=== PATIENT | female | born 1940 | race Two or more races ===

== ENCOUNTER 2022-03-22 23:47 | Inpatient (IN) | payer MEDICARE, OTHER ==
[~2022-03-22] VITALS: Ht 162.6 cm; Wt 68.0 kg
[2022-03-23] VITALS (7 sets, daily range): BP systolic 110–206; BP diastolic 56–87
--- NOTE | 2022-03-23 01:00 | NUR ---
PLANT BREEDERFUR WEIGHER NOTES PT WAS BROUGHT IN BY 2 MALE computer art instructor VIA GURNEY FROM [facility] UNDER THE CARE OF DR. DEL TORO WITH DX OF NSTEMI. PT IS A/O X3, VERY ANXIOUS. ROMANSH SPEAKING. BREATHING EVEN AND NON-LABORED. TOLERATING ROOM AIR WELL. NOT IN APPARENT DISTRESS. NO C/O PAIN OR DISCOMFORT AT THIS TIME. V/S TAKEN FOLLOW: BP 206/87, HR 87, RESP 18, TEMP 98 DEGREES, SPO2 94%. ALLERGIES DOCUMENTED. HAS LEFT UPPER ARM MIDLINE AND RIGHT HAND IV ACCESS #22G, BOTH SALINE LOCKED. NO S/S OF INFILTRATION NOTED. SKIN AND HEAD-TO-TOE ASSESSMENT DONE. ALL BELONGINGS ACCOUNTED FOR. PT VERBALIZED TO ASK HER DAUGHTER FOR MORE ADMISSION INFO. SAFETY PRECAUTIONS IN PLACED: BED LOCKED AND IN LOWEST POSITION, SIDE RAILS UP X2, CALL LIGHT WITHIN REACH.
--- NOTE | 2022-03-23 01:15 | NUR ---
HEDIS ABSTRACTOR NOTES BP 206/87. NOTIFIED MD AND ORDERED HYDRALAZINE 10 MG IV PRN Q4H.
[2022-03-23] MEDS ORDERED: ACETAMINOPHEN 325 MG TABLET PO PRN (02:30)
[2022-03-23] MEDS ORDERED: ENOXAPARIN SODIUM 40 MG/0.4 ML DISP.SYRIN SQ SCH (02:30)
[2022-03-23] MEDS ORDERED: ONDANSETRON HCL/PF 4 MG/2 ML VIAL IVP PRN (02:30)
[2022-03-23] MEDS: hydrALAZINE HCL IV 20 MG VIAL IV PRN (02:38)
--- NOTE | 2022-03-23 02:54 | NUR ---
PROFESSIONAL WRESTLER NOTES RECEIVED CALL FROM LAB, CRITICAL VALUE TROPONIN 317. NOTIFIED. Addendum: 03/23/22 at 0623 by November MUNDO LIMA KHURRAM CRUZ
[2022-03-23] MEDS ORDERED: ENOXAPARIN SODIUM 40 MG/0.4 ML DISP.SYRIN SQ ONE (03:00)
--- NOTE | 2022-03-23 06:23 | NUR ---
MOLECULAR BIOLOGY SCIENTIST CLOSING NOTES PT LYING IN BED AWAKE. A/O X3, BULGARIAN SPEAKING. NO SOB OR NOTED, TOLERATING ROOM AIR WELL. DENIES PAIN AT THIS TIME. AFEBRILE. SKIN IS INTACT. ON TELE MONITOR READING SINUS RHYTHM WITH PAC AT 84 BPM. HAS LEFT UPPER ARM MIDLINE AND RIGHT HAND IV ACCESS #22G, BOTH SALINE LOCKED. INTACT, PATENT AND FLUSHING. ALL DUE MEDS GIVEN AND NEEDS ATTENDED. CALLED DAUGHTER AND NOTIFIED HER MOTHER IS ADMITTED IN [facility]. SAFETY PRECAUTIONS MAINTAINED: BED LOCKED AND IN LOWEST POSITION, SIDE RAILS UP X2, CALL LIGHT WITHIN REACH. WILL ENDORSE FOR RICHIE.
--- NOTE | 2022-03-23 07:30 | NUR ---
RN OPENING NOTES RECEIVED PATIENT ON BED AWAKE , VERBALLY RESPONSIVE , ESTONIAN SPEAKING , ON TELE WITH COLD PATCHER SR WITH PAC @84 HR , NO SOB OR DISTRESS NOTED , NO C/O PAIN AND DISCOMFORT , EARL MIDLINE AND RIGHT HAND #22G SL , SIDE RAILS UP X 2 , SAFETY PRECAUTIONS PROVIDED AND WILL CONTINUE TO MONITOR
[2022-03-23] MEDS ORDERED: OXCA300T15 PO (08:25)
[2022-03-23] MEDS ORDERED: AMLO-213 PO (08:25)
[2022-03-23] MEDS ORDERED: CLON0.1T PO (08:25)
[2022-03-23] MEDS ORDERED: METO-358 PO (08:25)
[2022-03-23] MEDS ORDERED: GABA-536 PO (08:25)
[2022-03-23] MEDS ORDERED: HYDR100T27 PO (08:25)
[2022-03-23] MEDS ORDERED: METH5TAB6 PO (08:25)
[2022-03-23] MEDS ORDERED: ATOR20TA PO (08:25)
[2022-03-23 09:08] LABS: BASOPHILS # (AUTO) 0.1 K/uL (0.0-0.2); BASOPHILS % (AUTO) 0.8 % (0.0-2.0); EOSINOPHILS % (AUTO) 0.3 % (0.0-6.0); HEMATOCRIT 41 % (33-45); HEMOGLOBIN 13.3 g/dL (11.5-14.8); LYMPHOCYTES # (AUTO) 2.4 K/uL (0.8-4.8); LYMPHOCYTES % (AUTO) 21.3 % (20.0-44.0); MEAN CORPUSCULAR HGB CONC 32 g/dl (31.0-36.0); MEAN CORPUSCULAR VOLUME 88 fL (82-100); MONOCYTES # (AUTO) 0.7 K/uL (0.1-1.30); MONOCYTES % (AUTO) 6.1 % (2.0-12.0); NEUTROPHILS # (AUTO) 8.1 K/uL (1.8-8.9); NEUTROPHILS % (AUTO) 71.5 % (43.0-81.0); PLATELET COUNT (AUTO) 238 K/uL (150-450); RED BLOOD CELL COUNT(AUTO) 4.68 MIL/uL (4.0-5.2); WHITE BLOOD COUNT (AUTO) 11.3 K/uL (4.3-11.0)
[2022-03-23 09:32] LABS: CALCIUM, SERUM 9.3 mg/dL (8.5-10.1); CREATININE 0.7 mg/dL (0.6-1.3); POTASSIUM 3.7 mmol/L (3.5-5.1)
[2022-03-23 09:56] LABS: THYROID STIMULATING HORMONE 2.624 uIU/mL (0.358-3.74)
[2022-03-23] MEDS: ASPIRIN 81 MG TAB.CHEW PO SCH (10:12)
[2022-03-23] MEDS: GABAPENTIN 400 MG CAPSULE PO SCH ×3 (10:12→17:00)
[2022-03-23] MEDS: AMLODIPINE BESYLATE 10 MG TABLET PO SCH (10:13)
[2022-03-23] MEDS: METHIMAZOLE (5MG) 5 MG TABLET PO SCH (10:13)
[2022-03-23] MEDS: ENOXAPARIN SODIUM 60 MG/0.6 ML DISP.SYRIN SQ SCH ×2 (10:26→21:14)
[2022-03-23] MEDS: CEFTRIAXONE 1 G in IV D5W 50 ML IV SCH (13:19)
[2022-03-23] MEDS: hydrALAZINE HCL 50 MG TABLET PO SCH ×2 (13:25→17:00)
[2022-03-23] MEDS: OXCARBAZEPINE 150 MG TABLET PO SCH (17:01)
--- NOTE | 2022-03-23 18:43 | NUR ---
MH TEACHER CLOSING NOTES PATIENT ON BED AWAKE A/O X 3 , VERBALLY RESPONSIVE , HUNGARIAN SPEAKING , ON TELE WITH CHIEF ORTHOPTIST SR @ 95 HR , NO SOB OR DISTRESS NOTED , NO C/O PAIN AND DISCOMFORT , ALL DUE MEDS GIVEN ORDERED , C/O TO BE NAUSEATED AND ZOFRAN 4MG GIVEN AT AROUND 1803 AND WITH HELP , EARL MIDLINE AND RIGHT HAND #22G SL AND IV ATB OF ROCEPHIN GIVEN ORDERED , SIDE RAILS UP X 2 , SAFETY PRECAUTIONS PROVIDED AND WILL ENDORSED TO NEXT SHIFT .
--- NOTE | 2022-03-23 19:40 | NUR ---
RN OPENING NOTES RECEIVED PT IN BED, ASLEEP, AWAKENS TO VERBAL STIMULI. AOx3, ABLE TO MAKE NEEDS KNOWN. ON RA AND TOLERATING WELL. NO SOB NOTED. NO S/SX OF RESPIRATORY DISTRESS NOTED. TELE MONITOR DETECTS SINUS RHYTHM. IV ACCESS IN KENNEDI MIDLINE AND R HAND #22G. IV IS INTACT, PATENT, AND FLUSHING WELL. SAFETY PRECAUTIONS IN PLACE: BED IN LOWEST, LOCKED POSITION, SIDERAILS UPx2, AND BRAKES ON. TABLE AND CALL LIGHT WITHIN REACH. ALL NEEDS MET AT THIS TIME.
[2022-03-23] MEDS: ATORVASTATIN 10 MG TABLET PO SCH (21:11)
[2022-03-24] VITALS: BP 128/60
[2022-03-24 04:00] VITALS: BP 145/58
--- NOTE | 2022-03-24 06:44 | NUR ---
RN CLOSING NOTES PT SITTING IN BED, AWAKE. AOx3, ABLE TO MAKE NEEDS KNOWN. ON RA AND TOLERATING WELL. NO SOB NOTED. NO S/SX OF RESPIRATORY DISTRESS NOTED. TELE MONITOR DETECTS SINUS RHYTHM. IV ACCESS IN EARL MIDLINE #18G. IV IS INTACT, PATENT, AND FLUSHING WELL. ALL ORDERS CARRIED OUT. ALL NEEDS MET. PT KEPT CLEAN AND DRY. SAFETY PRECAUTIONS IN PLACE: BED IN LOWEST, LOCKED POSITION, SIDERAILS UPx2, AND BRAKES ON. TABLE AND CALL LIGHT WITHIN REACH. WILL ENDORSE TO ONCOMING SHIFT FOR RICHIE.
[2022-03-24 07:34] LABS: BASOPHILS % (AUTO) 0.3 % (0.0-2.0); EOSINOPHILS % (AUTO) 0.3 % (0.0-6.0); HEMATOCRIT 39 % (33-45); HEMOGLOBIN 12.6 g/dL (11.5-14.8); LYMPHOCYTES # (AUTO) 2.3 K/uL (0.8-4.8); LYMPHOCYTES % (AUTO) 30.8 % (20.0-44.0); MEAN CORPUSCULAR HGB CONC 32 g/dl (31.0-36.0); MEAN CORPUSCULAR VOLUME 89 fL (82-100); MONOCYTES # (AUTO) 0.6 K/uL (0.1-1.30); MONOCYTES % (AUTO) 7.8 % (2.0-12.0); NEUTROPHILS # (AUTO) 4.6 K/uL (1.8-8.9); NEUTROPHILS % (AUTO) 60.8 % (43.0-81.0); PLATELET COUNT (AUTO) 222 K/uL (150-450); RED BLOOD CELL COUNT(AUTO) 4.41 MIL/uL (4.0-5.2); WHITE BLOOD COUNT (AUTO) 7.6 K/uL (4.3-11.0)
--- NOTE | 2022-03-24 07:40 | NUR ---
PHY THERAPIST OPENING PATIENT IS ALERT AND ORIENTED X3.PATIENT IS SLOVENIAN SPEAKING. PATIENT IS ON TELE MONITOR CURRENTLY SINUS RHYTHM. NO SIGNS OF PAIN OR DISCOMFORT NOTED AT THIS TIME. PATIENT HAS LEFT UPPER ARM MIDLINE. IV INTACT AND PATENT. PATIENT IS ON ROOM AIR. ALL SAFETY MEASURES IN PLACE. CALL LIGHT WITHIN REACH. BED LOCKED AT LOWEST POSITION. BED ALARM ON. SIDE RAILS UP X2.
[2022-03-24 07:51] LABS: ALBUMIN 3.3 g/dL (3.4-5.0); BILIRUBIN,TOTAL 0.5 mg/dL (0.2-1.0); CALCIUM, SERUM 9.3 mg/dL (8.5-10.1); CREATININE 0.8 mg/dL (0.6-1.3); MAGNESIUM 2.4 mg/dL (1.8-2.4); PHOSPHORUS 3.9 mg/dL (2.5-4.9); POTASSIUM 3.7 mmol/L (3.5-5.1)
[2022-03-24 08:00] VITALS: BP 183/74
--- NOTE | 2022-03-24 08:34 | NUR ---
notified dr. leblanc that troponin is 397
[2022-03-24] MEDS ORDERED: METOPROLOL SUCCINATE 50 MG TAB.SR.24H PO SCH (09:00)
[2022-03-24] MEDS: ASPIRIN 81 MG TAB.CHEW PO SCH (09:56)
[2022-03-24] MEDS: GABAPENTIN 400 MG CAPSULE PO SCH ×3 (09:57→16:42)
[2022-03-24] MEDS: AMLODIPINE BESYLATE 10 MG TABLET PO SCH (09:57)
[2022-03-24] MEDS: METHIMAZOLE (5MG) 5 MG TABLET PO SCH (09:57)
[2022-03-24] MEDS: OXCARBAZEPINE 150 MG TABLET PO SCH ×2 (09:58→16:42)
[2022-03-24] MEDS: hydrALAZINE HCL 50 MG TABLET PO SCH ×3 (09:58→17:00)
[2022-03-24] MEDS: ENOXAPARIN SODIUM 60 MG/0.6 ML DISP.SYRIN SQ SCH ×2 (10:00→21:31)
[2022-03-24] MEDS: METOPROLOL TARTRATE 50 MG TABLET PO SCH ×2 (11:12→18:01)
[2022-03-24] MEDS: CEFTRIAXONE 1 G in IV D5W 50 ML IV SCH (11:55)
[2022-03-24 12:00] VITALS: BP 139/59
[2022-03-24 16:00] VITALS: BP 116/54
--- NOTE | 2022-03-24 17:30 | NUR ---
telehealth nurse note provided education on hydralazine and benefits of it and risks due to low bp.patient refused.
--- NOTE | 2022-03-24 18:48 | NUR ---
NAVAL GUNFIRE SPOTTER CLOSING NOTE PATIENT IS ALERT AND ORIENTED X3.PATIENT IS POLISH SPEAKING ONLY UNDERSTANDS A LITTLE BIT OF HONDURAN. PATIENT IS ON TELE MONITOR CURRENTLY SINUS RHYTHM. NO SIGNS OF PAIN OR DISCOMFORT NOTED AT THIS TIME. PATIENT HAS LEFT UPPER ARM MIDLINE. IV INTACT AND PATENT. PATIENT IS ON ROOM AIR. KEPT CLEAN AND DRY. ALL NEEDS MET. ALL SAFETY MEASURES IN PLACE. CALL LIGHT WITHIN REACH. BED LOCKED AT LOWEST POSITION. BED ALARM ON. SIDE RAILS UP X2.
--- NOTE | 2022-03-24 19:30 | NUR ---
noc rn opening note received patient in bed, a/ox3, yakut speaking. no s/s of apparent distress on room air and denies any pain. tele monitor reading sr with 82 bpm. r. ua midline in place in saline lock flushing well. re-oriented and encouraged with the use of call light. safety in place. will continue with patient's plan of care.
[2022-03-24 20:12] VITALS: BP 101/52
[2022-03-24] MEDS: ATORVASTATIN 10 MG TABLET PO SCH (21:31)
[2022-03-25] MEDS: METOPROLOL TARTRATE 50 MG TABLET PO SCH ×4 (00:03→18:36)
[2022-03-25 00:09] VITALS: BP 117/47
[2022-03-25 04:00] VITALS: BP 155/49
--- NOTE | 2022-03-25 06:43 | NUR ---
noc rn closing patient in bed with eyes closed. easy to arouse. a/ox3-4. tele monitor reading sb this am with 53bpm this am. no s/s of apparent distress on room air. denies pain at this time. all needs attended. all scheduled medications administered. safety in place. will endorse to morning shift rn for continuity of patient care.
[2022-03-25 07:12] LABS: BASOPHILS % (AUTO) 0.5 % (0.0-2.0); EOSINOPHILS % (AUTO) 0.8 % (0.0-6.0); HEMATOCRIT 37 % (33-45); HEMOGLOBIN 12.2 g/dL (11.5-14.8); LYMPHOCYTES # (AUTO) 2.3 K/uL (0.8-4.8); LYMPHOCYTES % (AUTO) 28.3 % (20.0-44.0); MEAN CORPUSCULAR HGB CONC 33 g/dl (31.0-36.0); MEAN CORPUSCULAR VOLUME 88 fL (82-100); MONOCYTES # (AUTO) 0.6 K/uL (0.1-1.30); NEUTROPHILS # (AUTO) 5.1 K/uL (1.8-8.9); NEUTROPHILS % (AUTO) 63.4 % (43.0-81.0); PLATELET COUNT (AUTO) 204 K/uL (150-450); RED BLOOD CELL COUNT(AUTO) 4.22 MIL/uL (4.0-5.2)
[2022-03-25 07:52] LABS: ALBUMIN 3.2 g/dL (3.4-5.0); BILIRUBIN,TOTAL 0.4 mg/dL (0.2-1.0); CALCIUM, SERUM 8.9 mg/dL (8.5-10.1); CREATININE 0.6 mg/dL (0.6-1.3); MAGNESIUM 2.4 mg/dL (1.8-2.4); PHOSPHORUS 3.7 mg/dL (2.5-4.9); POTASSIUM 3.7 mmol/L (3.5-5.1); TOTAL PROTEIN, SERUM 6.7 g/dL (6.4-8.2)
--- NOTE | 2022-03-25 08:03 | NUR ---
WELDING SPECIALIST OPENING NOTE PATIENT IS ALERT AND ORIENTED X3.PATIENT IS SLOVAK SPEAKING . PATIENT IS ON TELE MONITOR CURRENTLY SINUS RHYTHM. NO SIGNS OF PAIN OR DISCOMFORT NOTED AT THIS TIME. PATIENT HAS LEFT UPPER ARM MIDLINE. IV INTACT AND PATENT. PATIENT IS ON ROOM AIR. KEPT CLEAN AND DRY. ALL NEEDS MET. ALL SAFETY MEASURES IN PLACE. CALL LIGHT WITHIN REACH. BED LOCKED AT LOWEST POSITION. BED ALARM ON. SIDE RAILS UP X2.WILL CONTINUE TO MONITOR.
[2022-03-25] MEDS: METHIMAZOLE (5MG) 5 MG TABLET PO SCH (08:37)
[2022-03-25] MEDS: GABAPENTIN 400 MG CAPSULE PO SCH ×3 (08:38→16:26)
[2022-03-25] MEDS: OXCARBAZEPINE 150 MG TABLET PO SCH ×2 (08:38→16:26)
[2022-03-25] MEDS: AMLODIPINE BESYLATE 10 MG TABLET PO SCH (08:38)
[2022-03-25] MEDS: ASPIRIN 81 MG TAB.CHEW PO SCH (08:38)
[2022-03-25] MEDS: hydrALAZINE HCL 50 MG TABLET PO SCH ×3 (08:39→16:27)
[2022-03-25] MEDS: ENOXAPARIN SODIUM 60 MG/0.6 ML DISP.SYRIN SQ SCH ×2 (08:40→21:13)
--- NOTE | 2022-03-25 09:00 | NUR ---
RN NOTES FROM LAB [facility] CALLED AND GAVE REPORT OF TROPONIN 334. INFORMED ALICE BRAGG NO NEW ORDER WAS GIVEN.
[2022-03-25] MEDS: MORPHINE SULFATE INJ 2 MG/ML DISP.SYRIN IV PRN (10:29)
--- NOTE | 2022-03-25 10:35 | NUR ---
WOUND CARE CONSULT: LIMITED ASSESSMENT DUE TO PT UNABLE TO FULLY BE TURNED (COMPLAINING OF RT KNEE PAIN). PT WAS MEDICATED FOR PAIN BY RN BUT RESISTS BEING TURNED. DRY SCABS NOTED TO RT KNEE AREA WITH FULL THICKNESS PRESSURE ULCER NOTED TO SACRUM EXTENDING TO RT BUTTOCK WITH INTACT DEEP TISSUE INJURY TO RT BUTTOCK, PRESENT ON ADMISSION. RECOMMENDATIONS MADE FOR SKIN PROTECTION. DISCUSSED WITH NURSING STAFF. DR VALDES NOTIFIED OF SURGICAL CONSULT REQUEST. PT IS INCONTINENT. IN AGREEMENT WITH PLAN OF CARE. Addendum: 03/25/22 at 1112 by SHERIE HERNANDEZ WNDNU [facility].
[2022-03-25] MEDS: CEFTRIAXONE 1 G in IV D5W 50 ML IV SCH (12:26)
[2022-03-25] MEDS ORDERED: IOHEXOL-350 100 ML VIAL IV ONE (13:27)
[2022-03-25] MEDS ORDERED: IV NS 0.9% 0 ML IV ONE (13:28)
--- NOTE | 2022-03-25 17:18 | NUR ---
RN NOTES DYANA FROM LAB CALLED AND REPORTED TROPONIN LEVEL 314. INFORMED ALICE BRAGG AT 1720.
--- NOTE | 2022-03-25 18:56 | NUR ---
PATIENT FINANCIAL SERVICES SPECIALIST CLOSING NOTE PATIENT IS ALERT AND ORIENTED X3.PATIENT IS ITALIAN SPEAKING . PATIENT IS ON TELE MONITOR CURRENTLY SINUS RHYTHM. NO SIGNS OF PAIN OR DISCOMFORT NOTED AT THIS TIME. PATIENT HAS LEFT UPPER ARM MIDLINE. IV INTACT AND PATENT. PATIENT IS ON ROOM AIR. ALL DUE MEDS GIVEN ORDERED.ALL NEEDS MET. ALL SAFETY MEASURES IN PLACE. CALL LIGHT WITHIN REACH. BED LOCKED AT LOWEST POSITION. BED ALARM ON. SIDE RAILS UP X2.WILL ENDORSE FOR RICHIE..
--- NOTE | 2022-03-25 19:45 | NUR ---
TAPERING MACHINE OPERATOR NOTES SB-53 ON TELE MONITOR.LAYING COMFORTABLY ON BED,BREATHING REGULAR,NOT IN ANY FORM OF DISTRESS.SPEAK BERMUDIAN WITH LITTLE COLOMBIAN.WITH EARL MIDLINE FOR MEDS AND HYDRATION.S/P RIGHT HIP ARTHROPLASTY,DRESSING INTACT AND DRY.PAIN TOLERABLE AT THE MOMENT.ON PUREWICK FOR VOIDING CONNECTED TO LIS WALL SUCTION.PADS SOAKING WET.FALL RISK,BED ON LOWEST POSITION AND LOCKED,BED ALARM,CALL LIGHT IN REACH,NEEDS ANTICIPATED.
[2022-03-25 20:00] VITALS: BP 136/46
[2022-03-25] MEDS: ATORVASTATIN 10 MG TABLET PO SCH (21:12)
[2022-03-26] VITALS: BP 147/20
--- NOTE | 2022-03-26 | NUR ---
ONION TIER NOTES BP 114/58, PULSE-60 DUE LOPRESSOR 50MG PO GIVEN ORDERED.
[2022-03-26] MEDS: METOPROLOL TARTRATE 50 MG TABLET PO SCH ×4 (02:18→19:01)
--- NOTE | 2022-03-26 05:30 | NUR ---
SOLID CENTER WINDER NOTES MORNING CARE RENDERED WITH STAR BLEVINS,IN PAIN,OFFERED PAIN MEDICINE BUT REFUSED
--- NOTE | 2022-03-26 06:00 | NUR ---
TEACHER ADVENTURE EDUCATION NOTES BP 124/70,PULSE-62,DUE LOPRESSOR 50MG PO GIVEN ORDERED.
--- NOTE | 2022-03-26 06:31 | NUR ---
RN ICU NOTES SLEPT WELL AT NIGHT,ALL DUE MEDS ADMINISTERED,REFUSED TO BE REPOSITIONED,REFUSED PAIN MANAGEMENT.CALL LIGHT IN REACH,NEEDS ATTENDED.
--- NOTE | 2022-03-26 07:30 | NUR ---
MARINE GEAR KEEPER OPENING NOTE PATIENT IS ALERT AND ORIENTED X3.PATIENT IS BENGALI SPEAKING . PATIENT IS ON TELE MONITOR CURRENTLY SINUS RHYTHM. NO SIGNS OF PAIN OR DISCOMFORT NOTED AT THIS TIME. PATIENT HAS LEFT UPPER ARM MIDLINE. IV INTACT AND PATENT. PATIENT IS ON ROOM AIR. KEPT CLEAN AND DRY. ALL NEEDS MET. ALL SAFETY MEASURES IN PLACE. CALL LIGHT WITHIN REACH. BED LOCKED AT LOWEST POSITION. BED ALARM ON. SIDE RAILS UP X2.WILL CONTINUE TO MONITOR.
[2022-03-26 08:00] VITALS: BP 181/72
[2022-03-26] MEDS: GABAPENTIN 400 MG CAPSULE PO SCH ×3 (09:07→17:58)
[2022-03-26] MEDS: METHIMAZOLE (5MG) 5 MG TABLET PO SCH (09:07)
[2022-03-26] MEDS: AMLODIPINE BESYLATE 10 MG TABLET PO SCH (09:08)
[2022-03-26] MEDS: OXCARBAZEPINE 150 MG TABLET PO SCH ×2 (09:08→17:57)
[2022-03-26] MEDS: ASPIRIN 81 MG TAB.CHEW PO SCH (09:08)
[2022-03-26] MEDS: hydrALAZINE HCL 50 MG TABLET PO SCH ×3 (09:09→17:58)
[2022-03-26] MEDS: MORPHINE SULFATE INJ 2 MG/ML DISP.SYRIN IV PRN (09:10)
[2022-03-26] MEDS: ENOXAPARIN SODIUM 40 MG/0.4 ML DISP.SYRIN SQ SCH (09:13)
[2022-03-26 12:00] VITALS: BP 134/60
[2022-03-26] MEDS: CEFTRIAXONE 1 G in IV D5W 50 ML IV SCH (12:42)
[2022-03-26] MEDS: PROSOURCE / PROSTAT (PYXIS) 30 ML UDC GT SCH ×2 (14:26→17:57)
[2022-03-26 16:00] VITALS: BP 136/54
[2022-03-26] MEDS: ENSURE ENLIVE 237 ML LIQUID (VANILLA) PO SCH (18:04)
--- NOTE | 2022-03-26 18:45 | NUR ---
WOOL CLASSER CLOSING NOTE PATIENT IS ALERT AND ORIENTED X3.PATIENT IS TELUGU SPEAKING . PATIENT IS ON TELE MONITOR CURRENTLY SINUS RHYTHM. NO SIGNS OF PAIN OR DISCOMFORT NOTED AT THIS TIME. PATIENT HAS LEFT UPPER ARM MIDLINE. IV INTACT AND PATENT. PATIENT IS ON ROOM AIR. KEPT CLEAN AND DRY. ALL NEEDS MET.ALL DUE MEDS GIVEN ORDERED. ALL SAFETY MEASURES IN PLACE. CALL LIGHT WITHIN REACH. BED LOCKED AT LOWEST POSITION. BED ALARM ON. SIDE RAILS UP X2.WILL ENDORSE FOR RICHIE.
--- NOTE | 2022-03-26 19:50 | NUR ---
ASSISTANT ACCOUNT MANAGER NOTES RECEIVED ON BED A/IO X3,SPEAK TAIWANESE,BREATHING REGULAR,NOT IN ANY FORM OF DISTRESS,SR WITH PAC 70 ON TELE MONITOR.BREATHING REGULAR,NOT IN ANY FORM DISTRESS.PER REPORT ,PATIENT ABLE TO SIT ON BEDSIDE CHAIR TODAY WITH ASSIST.TOLERATED WELL.NO FALL NO INJURY,SALINE LOCK EARL MIDLINE INTACT AND PATENT.CALL LIGHT IN REACH,NEEDS ANTICIPATED.NEEDS ANTICIPATED.
[2022-03-26 20:00] VITALS: BP 117/62
[2022-03-26] MEDS: THERAHONEY GEL 1.5 OZ TUBE TP SCH (20:25)
[2022-03-26] MEDS: ATORVASTATIN 10 MG TABLET PO SCH (21:12)
[2022-03-27] MEDS: METOPROLOL TARTRATE 50 MG TABLET PO SCH ×4 (01:09→18:47)
--- NOTE | 2022-03-27 06:59 | NUR ---
ASSEMBLY INSPECTOR NOTES SLEEP WELL AT NIGHT,HAD LARGE BM,STILL HAVE PAIN ON RIGHT THIGH,REFUSED PAIN MEDICATIONS.IN NO ACUTE DISTRESS.ENDORSED TO DAY NURSE FOR RICHIE
--- NOTE | 2022-03-27 07:47 | NUR ---
RN OPENING NOTES RECEIVED PATIENT IN BED, ASLEEP. ALERT AND ORIENTED X3. PATIENT IS PORTUGUESE SPEAKING . PATIENT IS ON TELE MONITOR CURRENTLY SINUS RHYTHM. PATIENT ON ROOM AIR, SATURATING WELL, NO SIGNS OF DISTRESS OR DISCOMFORT. PATIENT HAS LEFT UPPER ARM MIDLINE 18G, IV INTACT AND PATENT. ALL NEEDS MET. SAFETY MEASURES IN PLACE. CALL LIGHT WITHIN REACH. BED LOCKED AT LOWEST POSITION. BED ALARM ON. SIDE RAILS UP X2. WILL CONTINUE TO MONITOR.
[2022-03-27 08:00] VITALS: BP 147/59
[2022-03-27] MEDS: GABAPENTIN 400 MG CAPSULE PO SCH ×3 (08:45→16:45)
[2022-03-27] MEDS: ASPIRIN 81 MG TAB.CHEW PO SCH (08:45)
[2022-03-27] MEDS: METHIMAZOLE (5MG) 5 MG TABLET PO SCH (08:45)
[2022-03-27] MEDS: OXCARBAZEPINE 150 MG TABLET PO SCH ×2 (08:46→16:43)
[2022-03-27] MEDS: ENOXAPARIN SODIUM 40 MG/0.4 ML DISP.SYRIN SQ SCH (08:48)
[2022-03-27] MEDS: AMLODIPINE BESYLATE 10 MG TABLET PO SCH (08:49)
[2022-03-27] MEDS: hydrALAZINE HCL 50 MG TABLET PO SCH ×3 (08:49→16:45)
[2022-03-27] MEDS: PROSOURCE / PROSTAT (PYXIS) 30 ML UDC GT SCH ×4 (09:25→16:50)
[2022-03-27] MEDS: ENSURE ENLIVE 237 ML LIQUID (VANILLA) PO SCH ×2 (09:27→16:46)
[2022-03-27] MEDS: THERAHONEY GEL 1.5 OZ TUBE TP SCH (09:27)
[2022-03-27] MEDS ORDERED: IOHEXOL-350 100 ML VIAL IV ONE (10:44)
[2022-03-27] MEDS ORDERED: SODIUM BICARBONATE 5 ML VIAL ONE (10:46)
[2022-03-27] MEDS ORDERED: IV NS 0.9% 250 ML IV ONE (10:47)
[2022-03-27] MEDS ORDERED: NITROGLYCERIN 0.4 MG/TAB BOTTLE ONE (11:16)
[2022-03-27] MEDS ORDERED: METOPROLOL TARTRATE INJ 5 MG/5 ML AMPUL ONE ×2 (11:16→11:34)
[2022-03-27] MEDS: METOPROLOL TARTRATE INJ 5 MG/5 ML AMPUL IVP PRN ×4 (11:25→11:40)
[2022-03-27 11:27] LABS: BASOPHILS # (AUTO) 0.2 K/uL (0.0-0.2); BASOPHILS % (AUTO) 1.1 % (0.0-2.0); EOSINOPHILS % (AUTO) 0.4 % (0.0-6.0); HEMATOCRIT 38 % (33-45); HEMOGLOBIN 12.2 g/dL (11.5-14.8); LYMPHOCYTES # (AUTO) 2.3 K/uL (0.8-4.8); LYMPHOCYTES % (AUTO) 15.8 % (20.0-44.0); MEAN CORPUSCULAR HGB CONC 32 g/dl (31.0-36.0); MEAN CORPUSCULAR VOLUME 91 fL (82-100); MONOCYTES # (AUTO) 1.1 K/uL (0.1-1.30); MONOCYTES % (AUTO) 7.7 % (2.0-12.0); PLATELET COUNT (AUTO) 151 K/uL (150-450); WHITE BLOOD COUNT (AUTO) 14.7 K/uL (4.3-11.0)
[2022-03-27] MEDS ORDERED: NITROGLYCERIN 4.9 GM SPRAY SL ONE (11:30)
[2022-03-27 11:37] LABS: CALCIUM, SERUM 8.7 mg/dL (8.5-10.1); CARBON DIOXIDE 25 mmol/L (21-32); CHLORIDE 107 mmol/L (98-107); CREATININE 0.7 mg/dL (0.6-1.3); GLUCOSE 96 mg/dL (74-106); POTASSIUM 3.5 mmol/L (3.5-5.1); SODIUM SERUM 139 mmol/L (136-145); UREA NITROGEN, BLOOD 16 mg/dL (7-18)
--- NOTE | 2022-03-27 11:47 | NUR ---
pt in for CTA heart; daughter consented to pocedure; pt not always following commands; occasional prompts needed; Metoprolol 5 mg IVP every 5 minutes x 4 doses given (20 mg total) and NTG 1 spray; pt tolerated procedure; VS stable, report given to CLARENCE Castelan; pt wheeled back to floor
[2022-03-27 12:00] VITALS: BP 124/54
--- NOTE | 2022-03-27 18:53 | NUR ---
RN CLOSING NOTE PATIENT IS ASLEEP IN BED, ALERT AND ORIENTED X3. PATIENT IS ALBANIAN SPEAKING . PATIENT IS ON TELE MONITOR CURRENTLY SINUS RHYTHM. NO SIGNS OF DISCOMFORT NOTED. PATIENT HAS LEFT UPPER ARM MIDLINE. IV INTACT AND PATENT. . KEPT CLEAN AND DRY.PATIENT IS ON ROOM AIR. ALL SAFETY MEASURES IN PLACE. CALL LIGHT WITHIN REACH. BED LOCKED AT LOWEST POSITION. BED ALARM ON. SIDE RAILS UP X2. WILL ENDORSE TO NEXT SHIFT
--- NOTE | 2022-03-27 19:30 | NUR ---
LANDSCAPE DRAFTER OPENING NOTES RECEIVED PATIENT LYING IN BED ASLEEP, EASILY AROUSED. A/O X3. BREATHING EVEN AND NON-LABORED ON ROOM AIR. NOT IN APPARENT DISTRESS. DENIES PAIN AT THIS TIME. ON TELE MONITOR READING SINUS RHYTHM WITH PAC AT 85 BPM. HAS LEFT UPPER ARM IV ACCESS #18G AND SALINE LOCKED. NO S/S OF INFILTRATION NOTED. SAFETY MEASURES IN PLACE: BED IN LOWEST AND LOCKED POSITION, SIDE RAILS UP X2, BED ALARM ON AND CALL LIGHT WITHIN EASY REACH. WILL CONTINUE POC.
[2022-03-27 20:00] VITALS: BP 139/55
[2022-03-27] MEDS: ATORVASTATIN 10 MG TABLET PO SCH (21:45)
[2022-03-28] VITALS: BP 141/54
[2022-03-28] MEDS: METOPROLOL TARTRATE 50 MG TABLET PO SCH ×4 (00:09→17:33)
[2022-03-28 04:00] VITALS: BP 172/68
[2022-03-28] MEDS: hydrALAZINE HCL IV 20 MG VIAL IV PRN (04:53)
--- NOTE | 2022-03-28 05:00 | NUR ---
SALES SOLUTIONS ASSOCIATE NOTES BP 172/68. ADMINISTERED PRN HYDRALAZINE IV. TOLERATED WELL.
[2022-03-28 06:55] LABS: BASOPHILS % (AUTO) 0.3 % (0.0-2.0); EOSINOPHILS % (AUTO) 2.3 % (0.0-6.0); HEMATOCRIT 36 % (33-45); HEMOGLOBIN 11.8 g/dL (11.5-14.8); LYMPHOCYTES # (AUTO) 1.6 K/uL (0.8-4.8); MEAN CORPUSCULAR HGB CONC 33 g/dl (31.0-36.0); MEAN CORPUSCULAR VOLUME 89 fL (82-100); MONOCYTES # (AUTO) 0.6 K/uL (0.1-1.30); MONOCYTES % (AUTO) 7.5 % (2.0-12.0); NEUTROPHILS % (AUTO) 70.9 % (43.0-81.0); PLATELET COUNT (AUTO) 167 K/uL (150-450); RED BLOOD CELL COUNT(AUTO) 4.07 MIL/uL (4.0-5.2); WHITE BLOOD COUNT (AUTO) 8.5 K/uL (4.3-11.0)
--- NOTE | 2022-03-28 06:57 | NUR ---
TIMBER MANAGEMENT PROFESSOR CLOSING NOTES PATIENT LYING IN BED AWAKE. A/O X3. NO SOB OR NOTED TOLERATING ROOM AIR WELL. NOT IN ACUTE DISTRESS. DENIES PAIN. AFEBRILE. ON TELE MONITOR READING SINUS RHYTHM WITH PAC AND PVC AT 68 BPM. HAS LEFT UPPER ARM MIDLINE #18G AND SALINE LOCKED. INTACT, PATENT AND FLUSHING. ALL DUE MEDS GIVEN AND NEEDS ATTENDED. SAFETY MEASURES MAINTAINED. WILL ENDORSE FOR RICHIE.
[2022-03-28 07:07] LABS: CALCIUM, SERUM 8.6 mg/dL (8.5-10.1); CREATININE 0.6 mg/dL (0.6-1.3); POTASSIUM 3.5 mmol/L (3.5-5.1)
--- NOTE | 2022-03-28 07:11 | NUR ---
GENERAL SUPERINTENDENT OPENING NOTES RECEIVED PATIENT RESTING IN BED, A/Ox3, IVORIAN SPEAKING. ON ROOM AIR, NO S/S OF RESPIRATORY DISTRESS. RESPONDS TO VERBAL AND TACTILE STIMULI. IV ACCESS EARL MIDLINE SL. INTACT AND PATENT, NO S/S OF INFILTRATION. ON TELE MONITORING SHOWING TELE SINUS RHYTHM WITH PAC AND PVC HR OF 68. SKIN ISSUES: R HIP SX INCISION, SACRAL WOUND, R BUTTOCKS DTI. SAFETY MEASURES IN PLACE: BED LOCKED AND IN LOWEST POSITION, SIDE RAILS UPx2, CALL LIGHT WITHIN REACH, HOB ELEVATED. WILL CONTINUE TO MONITOR.
[2022-03-28 08:00] VITALS: BP_SYST 122; BP_SYST 153; BP_DIAS 51; BP_DIAS 65
[2022-03-28] MEDS: THERAHONEY GEL 1.5 OZ TUBE TP SCH (09:00)
[2022-03-28] MEDS: METHIMAZOLE (5MG) 5 MG TABLET PO SCH (09:53)
[2022-03-28] MEDS: GABAPENTIN 400 MG CAPSULE PO SCH ×3 (09:53→17:33)
[2022-03-28] MEDS: OXCARBAZEPINE 150 MG TABLET PO SCH ×2 (09:53→17:33)
[2022-03-28] MEDS: hydrALAZINE HCL 50 MG TABLET PO SCH ×3 (09:53→17:33)
[2022-03-28] MEDS: AMLODIPINE BESYLATE 10 MG TABLET PO SCH (09:54)
[2022-03-28] MEDS: ASPIRIN 81 MG TAB.CHEW PO SCH (09:54)
[2022-03-28] MEDS: ENOXAPARIN SODIUM 40 MG/0.4 ML DISP.SYRIN SQ SCH (09:56)
[2022-03-28] MEDS: ENSURE ENLIVE 237 ML LIQUID (VANILLA) PO SCH ×2 (09:58→17:34)
[2022-03-28] MEDS: PROSOURCE / PROSTAT (PYXIS) 30 ML UDC GT SCH ×3 (09:58→17:00)
[2022-03-28 12:00] VITALS: BP 131/52
[2022-03-28] MEDS ORDERED: METO50TA16 PO (12:52)
[2022-03-28] MEDS ORDERED: LACT-246 PO (12:52)
[2022-03-28] MEDS ORDERED: MIRT-121 PO (12:52)
[2022-03-28] MEDS ORDERED: Prosource GT (12:52)
[2022-03-28] MEDS ORDERED: TRAM50TA2 PO (12:52)
[2022-03-28] MEDS ORDERED: ASPI-1169 PO (12:52)
[2022-03-28] MEDS ORDERED: COLL30OI TP (12:52)
[2022-03-28 17:33] VITALS: BP 164/66
--- NOTE | 2022-03-28 18:33 | NUR ---
KEY WORKER NOTES PATIENT D/C TO [facility], REPORT GIVEN TO CLARENCE MILLAN. PATIENT A/Ox3 KYRGYZ SPEAKING, ABLE TO MAKE NEEDS KNOWN. HEALTH TEACHINGS AND DISCHARGE INSTRUCTIONS EXPLAINED WITH TRANSLATION TO PATIENT, PATIENT VERBALIZED UNDERSTANDING, PATIENT WAS UNABLE TO SIGN FORMS, TWO RNs SIGNED. PATIENT SKIN ISSUES PHOTOS TAKEN AND FILED INTO CHART. V/S STABE, MIDLINE REMOVED, PRESSURE DRESSING IN PLACE, ID BAND REMOVED. PATIENT LEFT UNIT @1830 ACCOMPANIED BY TWO sports teacher. CHARGE NURSE AND MD AWARE OF DISCHARGE.
[2022-03-28] MEDS ORDERED: MIRTAZAPINE 15 MG TABLET PO SCH (22:00)
== END 2022-03-28 18:33 | DRG 280 ==
LOC: TELE 03-23 00:56
PROVIDERS: ADMIT Nurse Practitioner Acute Care; ATTEND Nurse Practitioner Acute Care
DX: I11.0 Hypertensive heart disease with heart failure (principal); I21.A1 Myocardial infarction type 2; I50.33 Acute on chronic diastolic (congestive) heart failure; L89.153 Pressure ulcer of sacral region, stage 3; N39.0 Urinary tract infection, site not specified; B96.89 Other specified bacterial agents as the cause of diseases classified elsewhere; Z96.641 Presence of right artificial hip joint; Z87.311 Personal history of (healed) other pathological fracture; M81.0 Age-related osteoporosis without current pathological fracture; M16.12 Unilateral primary osteoarthritis, left hip; M19.90 Unspecified osteoarthritis, unspecified site; E66.01 Morbid (severe) obesity due to excess calories; Z68.25 Body mass index [BMI] 25.0-25.9, adult; K59.00 Constipation, unspecified; I25.10 Atherosclerotic heart disease of native coronary artery without angina pectoris; L89.316 Pressure-induced deep tissue damage of right buttock; Z79.899 Other long term (current) drug therapy
CPT/HCPCS: 36415; 73502; 75574; 80048-TC; 80053-TC; 80061-TC; 83605-TC; 83735-TC; 84100-TC; 84439-TC; 84443-TC; 84484-TC; 85025-TC; 87081-TC; 93307-TC; 93970-TC; 97110-TC; 97530-TC; G0378; J0360; J0696; J1650; J2270; J2405; J3490; J7050; J7060; Q9967